=== PATIENT | male | born 1945 | race Caucasian/White ===

== ENCOUNTER → 2016-12-20 | Outpatient (CLI) | payer MEDICARE ==
[~2016-12-20] MED LIST: ENALAPRIL MALEA20 MG PO
== END ==
LOC: RT 09:21
DX: I10 Essential (primary) hypertension (principal); R94.31 Abnormal electrocardiogram [ECG] [EKG]
CPT/HCPCS: 93005

== ENCOUNTER → 2017-03-14 | Outpatient (CLI) | payer MEDICARE | LOC: KOH-I 10:10 | DX: R60.0 Localized edema (principal); M79.605 Pain in left leg; M71.22 Synovial cyst of popliteal space [Baker], left knee | CPT/HCPCS: 93971 ==

== ENCOUNTER → 2020-12-09 | Outpatient (CLI) | payer MEDICARE ==
[~2020-12-09] MED LIST changes: +CORDARONE 200M200 MG PO; +ELIQUIS5 MG PO; +LIPITOR TAB 2020 MG PO; +NEURONTIN 300300 MG PO; +NORVASC 5 MG TAB5 MG PO; +TOPROL XL25 MG PO; +ULTRAM50 MG PO
== END ==
LOC: KOH-I 16:16
DX: M21.612 Bunion of left foot (principal)
CPT/HCPCS: 73630

== ENCOUNTER → 2021-02-19 | Outpatient (CLI) | payer MEDICARE | LOC: SLEEP 10:13 | DX: G47.33 Obstructive sleep apnea (adult) (pediatric) (principal) | CPT/HCPCS: 95811 ==

== ENCOUNTER → 2021-12-07 | Outpatient (CLI) | payer MEDICARE | LOC: KOH-I 12:19 | DX: M79.641 Pain in right hand (principal); M79.642 Pain in left hand; M19.042 Primary osteoarthritis, left hand; M19.041 Primary osteoarthritis, right hand; M19.032 Primary osteoarthritis, left wrist; M19.031 Primary osteoarthritis, right wrist; M79.89 Other specified soft tissue disorders | CPT/HCPCS: 73120 ==